=== PATIENT | female | born 1945 | race Hispanic/Latino ===

== ENCOUNTER → 2018-06-18 | Outpatient (CLI) | payer OTHER, MEDICARE ==
[2018-06-18 16:31] LABS: INR 1.01 (0.85-1.15); PROTHROMBIN TIME 10.6 SEC (9.6-11.6)
== END | disposition home or self-care (01) ==
LOC: LAB 15:27
PROVIDERS: ATTEND Family Medicine
DX: Z51.81 Encounter for therapeutic drug level monitoring (principal); Z79.01 Long term (current) use of anticoagulants
CPT/HCPCS: 36415; 85610; 85730

== ENCOUNTER 2018-11-15 20:39 | Emergency (ER) | payer OTHER, MEDICARE ==
[~2018-11-15 20:39] MED LIST: 0.9% SODIUM CHLORIDE 1000 ML IV BAG IV ONE
[2018-11-15 21:49] LABS: BASOPHILS % (AUTO) 0.9 % (0.0-5.0); EOSINOPHILS % (AUTO) 0.3 % (0.0-8.0); HEMATOCRIT 37.3 % (36-48); LYMPHOCYTES % (AUTO) 15.4 % (21.0-51.0); MEAN CORPUSCULAR HGB CONC 33.5 g/dL (32.0-36.0); MEAN CORPUSCULAR VOLUME 89.6 fL (79-99); MONOCYTES % (AUTO) 15.2 % (3.0-13.0); NEUTROPHILS % (AUTO) 68.2 % (40.0-77.0); NUCLEATED RED BLOOD CELLS 0.1 % (0.0-0.19); PLATELET COUNT (AUTO) 166 K/uL (130-400); RED BLOOD CELL COUNT(AUTO) 4.16 MIL/uL (4.00-5.50); RED CELL DISTRIBUTION WIDTH 13.5 % (11.0-15.5); WHITE BLOOD COUNT (AUTO) 5.5 K/uL (4.8-10.8)
[2018-11-15] MEDS ORDERED: ONDANSETRON HCL 4 MG/2 ML VIAL ONE (21:58)
[2018-11-15 22:03] LABS: CREATININE 1.1 mg/dL (0.5-1.5); POTASSIUM 3.9 mmol/L (3.5-5.1)
[2018-11-15] MEDS ORDERED: 0.9% SODIUM CHLORIDE 1000 ML IV BAG IV ONE (22:04)
[2018-11-15 22:06] LABS: INR 1.05 (0.85-1.15); PARTIAL THROMBOPLASTIN TIME 31.9 SEC (26.3-35.5)
[2018-11-15 22:08] LABS: ALBUMIN 3.9 g/dL (3.5-5.0); BILIRUBIN,TOTAL 0.7 mg/dL (0.2-1.0); TOTAL PROTEIN, SERUM 7.8 g/dL (6.0-8.3)
[2018-11-15 23:12] LABS: APPEARANCE,URINE Clear (CLEAR); BILIRUBIN,URINE Negative (NEGATIVE); COLOR,URINE Yellow (YELLOW); GLUCOSE, URINE (UA) Negative (NEGATIVE); KETONES,URINE 40 mg/dL (NEGATIVE); LEUKOCYTE ESTERASE ,URINE Large (NEGATIVE); NITRATE,URINE Negative (NEGATIVE); OCCULT BLOOD,URINE Small (NEGATIVE); PROTEIN,URINE Negative (NEGATIVE)
[2018-11-15] MEDS ORDERED: METRONIDAZOLE 500MG/100ML BAG 100 ML ONE (23:19)
[2018-11-15] MEDS ORDERED: CEFTRIAXONE SODIUM 1 GM ONE (23:25)
[2018-11-15 23:26] LABS: BACTERIA,URINE Few /HPF (None Seen)
[2018-11-15 23:27] LABS: MUCUS,URINE Few LPF (None Seen)
== END 2018-11-16 00:42 | disposition home or self-care (01) ==
LOC: EDH 20:39
DX: N39.0 Urinary tract infection, site not specified (principal); E86.0 Dehydration; I48.91 Unspecified atrial fibrillation; I48.92 Unspecified atrial flutter; Z88.0 Allergy status to penicillin; Z88.1 Allergy status to other antibiotic agents; Z79.899 Other long term (current) drug therapy; Z86.73 Personal history of transient ischemic attack (TIA), and cerebral infarction without residual deficits
CPT/HCPCS: 36415; 71045; 74176; 80053; 81001; 82550; 83605; 83690; 84484; 85025; 85610; 85730; 87040; 87088; 87804 ×2; 93005; 96361; 96374; 96375; 99284; J0696; J2405; J7030 ×2; J3490